=== PATIENT | female | born 1960 | race Two or more races ===

== ENCOUNTER 2020-09-08 08:28 | Inpatient (IN) | payer MEDICAID ==
[2020-09-05 09:18] LABS: HEMATOCRIT 39.3 % (37.0-47.0); HEMOGLOBIN 12.3 G/DL (12.0-16.0); MEAN CORPUSCULAR VOLUME 89 FL (80-99); PLATELET COUNT 267 K/UL (150-450); RED BLOOD COUNT 4.39 M/UL (4.20-5.40); RED CELL DISTRIBUTION WIDTH 16.6 % (11.6-14.8); WHITE BLOOD COUNT 3.4 K/UL (4.8-10.8)
[2020-09-05 09:21] LABS: APPEARANCE,URINE CLEAR; BILIRUBIN, URINE NEGATIVE (NEGATIVE); COLOR,URINE PALE YELLOW; GLUCOSE, URINE (UA) NEGATIVE (NEGATIVE); KETONES,URINE NEGATIVE (NEGATIVE); LEUKOCYTE ESTERASE ,URINE NEGATIVE (NEGATIVE); NITRITE,URINE NEGATIVE (NEGATIVE); PH,URINE 5 (4.5-8.0); PROTEIN,URINE NEGATIVE (NEGATIVE); UROBILINOGEN,URINE NORMAL MG/DL (0.0-1.0)
[2020-09-05 09:24] LABS: ANION GAP 9 mmol/L (5-15); BLOOD UREA NITROGEN 15 mg/dL (7-18); CALCIUM 9.2 MG/DL (8.5-10.1); CARBON DIOXIDE 27 MMOL/L (21-32); CHLORIDE 105 MMOL/L (98-107); CREATININE 0.7 MG/DL (0.55-1.30); POTASSIUM 4.2 MMOL/L (3.5-5.1); SODIUM 141 MMOL/L (136-145)
--- NOTE | 2020-09-05 15:52 | Diagnostic Imaging Report ---
Indication: Cough Technique: 2 views of the chest Comparison: None Findings: Lung bases are clear. There is a right chest port catheter. The heart size is normal. The aorta is tortuous and calcified. Impression: No acute process
--- NOTE | 2020-09-07 10:44 | Pre-op HX & Phy Repo 2 SIG ---
DATE OF ADMISSION: 09/08/2020 SCHEDULED FOR SURGERY: September 08, 2020. HISTORY OF PRESENT ILLNESS: The patient is a 60-year-old female in overall stable health with stage II invasive ductal carcinoma of the left breast. The patient presented in May 2020 with a left breast mass located at 1 o'clock 8 cm from the nipple measuring 3.1 x 2.3 x 2.3 cm as well as 2 cm axillary mass versus enlarged lymph node. Core biopsy of the left breast revealed invasive ductal carcinoma and core biopsy of the left axillary mass revealed metastatic breast carcinoma. Lesion is estrogen and progesterone receptor positive, HER2 negative, Ki-67 15%. The patient underwent a course of neoadjuvant chemotherapy with her last chemotherapy on August 08, 2020. The previously palpable mass resolved but there is persistent thickening in the same area. The patient is scheduled to undergo left breast partial mastectomy and left axillary lymph node dissection. PAST MEDICAL HISTORY: . MEDICATIONS: None. ALLERGIES: None. OPERATIONS: Laminectomy 2009. REVIEW OF SYSTEMS: 2, para 2. Last menstrual period at age 51. PHYSICAL EXAMINATION: VITAL SIGNS: The patient is 5 feet 2 inches, 163 pounds. Blood pressure slightly elevated. HEENT: Within normal limits. LUNGS: Clear. HEART: Regular rhythm. BREASTS: Moderate in size and ptotic. Right breast unremarkable. Left breast has persistent thickening in the upper outer quadrant where there was previously a 3 x 4 cm mass at 1 o'clock 8 cm from the nipple. On clinical exam, there is markedly decreased left axillary lymphadenopathy. ABDOMEN: Soft. PELVIC: Per primary care. RECTAL: Per primary care. EXTREMITIES: Without edema. NEUROLOGIC: Physiologic. IMPRESSION: Stage II invasive ductal carcinoma, left breast, status post neoadjuvant chemotherapy. PLAN: Left breast partial mastectomy and left axillary lymph node dissection. DISCUSSION: I have had a full discussion with the patient regarding the condition, the nature of the surgery, indications, alternatives, options, and risks including bleeding, infection, neuritis or neuralgia, need for additional surgery or treatments including chemotherapy, endocrine therapy, radiation therapy based on final pathology, distortion or scarring of the breast or nipple, etc. All questions have been answered, she understands and agrees to proceed. Rivera Diaz M.D. DR: Bobby JOB#: [id number] CC: BOLIVAR
[~2020-09-08] VITALS: Ht 157.5 cm; Wt 72.6 kg
[2020-09-08] VITALS (13 sets, daily range): BP systolic 104–153; BP diastolic 61–80
[~2020-09-08 08:28] MED LIST: VITAMIN D310 MCG ORAL
[2020-09-08] MEDS ORDERED: Midazolam 2mg/2ml Inj ONE (09:12)
[2020-09-08] MEDS ORDERED: fentaNYL 100 mcg/2 mL IV ONE (09:12)
[2020-09-08] MEDS ORDERED: Lidocaine 1% MPF 10mg/ml 5ml ONE (09:17)
--- NOTE | 2020-09-08 09:26 | Anethesia Preoperative Eval ---
Anesthesia Pre-op PMH/ROS General Date of Evaluation: Sep 08, 2020 Time of Evaluation: 09:23 Anesthesiologist: Yossi ASA Score: ASA 2 Mallampati Score Class I : Soft palate, uvula, fauces, pillars visible Class II: Soft palate, uvula, fauces visible Class III: Soft palate, base of uvula visible Class IV: Only hard plate visible Mallampati Classification: Class II Surgeon: Joe Diagnosis: L breast CA Surgical Procedure: Mastectomy Anesthesia History: none Family History: no anesthesia problems Allergies: Coded Allergies: No Known Allergies (Unverified , 09/05/20) Medications: see eMAR Patient NPO?: Yes Past Medical History Cardiovascular: Denies: HTN, CAD, [place], valve dz, arrhythmia, other Pulmonary: Denies: asthma, COPD, YOLA, other Gastrointestinal/Genitourinary: Reports: GERD; Denies: CRI, ESRD, other Neurologic/Psychiatric: Reports: depression/anxiety; Denies: dementia, CVA, TIA, other Endocrine: Denies: DM, hypothyroidism, steroids, other HEENT: Denies: cataract (L), cataract (R), glaucoma, [place] (L), [place] (R), other Hematology/Immune: Denies: anemia, DVT, bleeding disorder, other Musculoskeletal/Integumentary: Denies: OA, RA, DJD, DDD, edema, other Other: other - overweight PMH Narrative: as above PSxH Narrative: Spine Sx Anesthesia Pre-op Phys. Exam Physician Exam Last Vital Signs Date Time Temp Pulse Resp B/P (MAP) Pulse Ox O2 Delivery O2 Flow Rate FiO2 09/08/20 08:53 Room Air 09/08/20 08:53 96.8 89 18 153/73 98 Constitutional: NAD Neurologic: CN 2-12 intact Cardiovascular: RRR, no M/R/G Respiratory: CTA Gastrointestinal: S/NT/ND Airway Exam Mallampati Score: Class II MO: limited Neck: stiff ROM: limited Teeth: intact Dentures: no upper, no lower Anesthesia Pre-op A/P Labs see chart Risk Assessment & Plan Assessment: ASA 2 Plan: GA with ETT Status Change Before Surgery: No Pre-Antibiotics Drug: Ancef 1gr Given Within 1 Hr of Incision: Yes Time Given: 10:25 Stuart Sy MD Sep 08, 2020 09:26
[2020-09-08 09:30] LABS: HEMATOCRIT 33.2 % (37.0-47.0); HEMOGLOBIN 10.3 G/DL (12.0-16.0); MEAN CORPUSCULAR VOLUME 89 FL (80-99); PLATELET COUNT 213 K/UL (150-450); RED BLOOD COUNT 3.71 M/UL (4.20-5.40); RED CELL DISTRIBUTION WIDTH 15.8 % (11.6-14.8); WHITE BLOOD COUNT 2.2 K/UL (4.8-10.8)
[2020-09-08] MEDS ORDERED: DiphenhydrAMINE 50mg/ml Inj IVP PRN (09:30)
[2020-09-08] MEDS ORDERED: Hydromorphone 0.5mg/0.5ml inj IVP PRN (09:30)
[2020-09-08] MEDS ORDERED: LR 1000ml 1,000 ML IVLG SCH (09:30)
[2020-09-08] MEDS ORDERED: Ketorolac 30mg Inj IV PRN (09:30)
--- NOTE | 2020-09-08 10:14 | Pre-Procedure Note/Attestation ---
Pre-Procedure Note/Attestation Complete Prior to Procedure Planned Procedure: left Procedure Narrative: left breast partial mastectomy and left axillary lymph node dissection Indications for Procedure Pre-Operative Diagnosis: invasive ductal carcinoma left breast Attestation I attest that I discussed the nature of the procedure; its benefits; risks and complications; and alternatives (and the risks and benefits of such alternatives), prior to the procedure, with the patient (or the patient's legal insurance representative). I attest that, if there was a reasonable possibility of needing a blood transfusion, the patient (or the patient's legal insurance representative) was given the [facility] standardized written summary, pursuant to the [place] Blood Safety Act ([place] Health and Safety Code # 1645, as amended). I attest that I re-evaluated the patient just prior to the surgery and that there has been no change in the patient's H&P, except as documented below: none Rivera Diaz MD Sep 08, 2020 10:14
[2020-09-08] MEDS ORDERED: Bacitracin 50000 Units Vial ONE (10:23)
[2020-09-08] MEDS ORDERED: Rocuronium Bromide 50mg/5ml Inj IV ONE (10:34)
[2020-09-08] MEDS ORDERED: Morphine Sulfate 10mg/ml Inj ONE (11:11)
[2020-09-08] MEDS ORDERED: Sodium Chloride 10ml vial INJ ONE (11:11)
[2020-09-08] MEDS ORDERED: Glycopyrrolate 0.2mg/ml 1ml Vial ONE (11:11)
[2020-09-08] MEDS ORDERED: Acetaminophen (Non formulary) 100 ML IV ONE (11:15)
[2020-09-08] MEDS ORDERED: HYDROmorphone 1mg/ml Carpuject SUBQ PRN (12:15)
[2020-09-08] MEDS ORDERED: Metoclopramide 10mg/2ml Inj IVP PRN (12:15)
[2020-09-08] MEDS ORDERED: HYDROcodone/Acetamin 5/325 tab ORAL PRN (12:15)
--- NOTE | 2020-09-08 12:19 | Brief Operative Note ---
Immediate Post Operative Note Operative Note Pre-op Diagnosis: invasive ductal carcinoma left breast Procedure: left breast partial mastectomy and left axillary lymph node dissection Post-op Diagnosis: same Post-op Diagnosis: same as pre-op Findings: consistent w/pre-op dx studies Surgeon: ran Anesthesiologist: abebe Anesthesia: general Specimen: yes - left breast tissue, left axillary lymph nodes Complications: none Condition: stable Fluids: see anesthesia record Estimated Blood Loss: minimal Drains: AKASH Implant(s) used?: No Rivera Diaz MD Sep 08, 2020 12:19
--- NOTE | 2020-09-08 12:24 | Immediate Post-Op Evaluation ---
Immediate Post-Op Evalulation Immediate Post-Op Evalulation Procedure: L breast partial mastectomy with axillary l/n dissection Date of Evaluation: Sep 08, 2020 Time of Evaluation: 12:23 IV Fluids: 800 Blood Products: none Estimated Blood Loss: <50 Urinary Output: none Blood Pressure Systolic: 126 Blood Pressure Diastolic: 68 Pulse Rate: 86 Respiratory Rate: 20 O2 Sat by Pulse Oximetry: 99 Temperature (Fahrenheit): 98.5 Pain Score (1-10): 1 Nausea: No Vomiting: No Complications none Patient Status: reacts, patent, extubated, none Hydration Status: adequate Stuart Sy MD Sep 08, 2020 12:24
--- NOTE | 2020-09-08 14:00 | NUR ---
NURSE NOTES: patient admitted to room 404-2 s/p left partial mastectomy lymph node resection under Dr.Shiller gastelum. A&Ox4, verbally responsive. no respiratory distress on 2L via NC. no c/o pain at this time. Tati cath on right upper chest origanally for CHemo running LR. surgical vest in place. no bleeding noted. AKASH drainage 0 cc at this time. Scd's on. checked and counted belongings with CATHY Cabello,PACU. bed in the lowest position and locked. call light within reach.
--- NOTE | 2020-09-08 14:59 | Operative Note - Dictated ---
DATE OF OPERATION: 09/08/2020 SURGEON: Rivera Diaz MD DISPATCHER TUGBOAT: None. ANESTHESIOLOGIST: Stuart Sy MD TYPE OF ANESTHESIA: General. PREOPERATIVE DIAGNOSIS: Stage II invasive ductal carcinoma, left breast, status post neoadjuvant chemotherapy. POSTOPERATIVE DIAGNOSIS: Stage II invasive ductal carcinoma, left breast, status post neoadjuvant chemotherapy. OPERATION PERFORMED: Left breast partial mastectomy and left axillary lymph node dissection. DESCRIPTION OF PROCEDURE: The patient was taken to the operating room and under general anesthesia with sequential compression device stockings in place, she was prepped and draped in the usual fashion. The lesion was located in the periphery of the upper outer quadrant of the left breast. A curvilinear incision was made achieving hemostasis with cautery and flaps dissected circumferentially. The quadrant of breast tissue was resected down to the pectoralis fascia and chest wall and oriented for the pathologist with sutures placed anterior, superior, and medial. Inspection by Pathology revealed only evidence of fibrosis, status post chemotherapy, and the final margin will be determined on permanent sections. The breast was carefully inspected. There was no residual evidence of fibrotic or abnormal tissue. The field was irrigated with sterile water, followed by antibiotic. Hemostasis carefully achieved with cautery. The incision was closed with interrupted 2-0 Vicryl deep dermal subcutaneous sutures, followed by continuous 4-0 Monocryl subcuticular suture. A vertical left axillary incision was made achieving hemostasis with cautery and incising the clavipectoral fascia. A lower level lymph node dissection was performed using the THUNDERBEAT vessel sealing electrosurgical device as well as a 2-0 Vicryl [id number] suture for hemostasis onto the chest wall. The specimen was given to Pathology confirming the presence of lymph nodes. After dissection, there were no palpable or visible abnormal lymph nodes remaining. Through a separate stab incision inferolaterally, a 10 flat Clay drain was placed into the axilla and sutured to the skin with 2-0 nylon skin suture. The field was irrigated with water and antibiotic solution and hemostasis was secured. The clavipectoral fascia was closed with interrupted 3-0 Vicryl. The subcutaneous tissue was closed with interrupted 3-0 Vicryl and the skin closed with continuous 4-0 Monocryl subcuticular suture. Mastisol and half-inch Steri-Strips were applied to both incisions, followed by dry sterile dressing. The Clay drain placed into the axilla was connected to bulb suction. The patient tolerated the procedure well and left the operating room in good condition. Rivera Diaz M.D. DR: KENDALL JOB#: [id number] CC:
[2020-09-08] MEDS ORDERED: D5 1/2NS w/KCl 20mEq 1,000 ML IV SCH (15:30)
--- NOTE | 2020-09-08 16:45 | 48 Hour Post Anesthesia Eval ---
Post Anesthesia Evaluation Procedure: L breast partial mastectomy with axillary l/n dissection Date of Evaluation: Sep 08, 2020 Time of Evaluation: 16:44 Blood Pressure Systolic: 101 0: 53 Pulse Rate: 70 Respiratory Rate: 14 O2 Sat by Pulse Oximetry: 98 Airway: patent Nausea: No Vomiting: No Hydration Status: adequate Cardiopulmonary Status: stable Mental Status/LOC: patient returned to baseline Follow-up Care/Observations: na Post-Anesthesia Complications: none Follow-up care needed: N/A Doris De Santiago CRNA Sep 08, 2020 16:45
[2020-09-08] MEDS: ceFAZolin 2gm/50ml Premix 50 ML IV SCH (18:16)
--- NOTE | 2020-09-08 19:20 | NUR ---
NURSE HAND-OFF: Important Events on Shift: s/p left partial mastectomy Patient Status: stable6 Diet: regular Pending Orders: n/a Pending Results/Labs:n/a Pending MD notification:n/a Latest Vital Signs: Temperature 98.0 , Pulse 70 , B/P 101 /53 , Respiratory Rate 14 , O2 SAT 98 , Nasal Cannula, O2 Flow Rate 3.0 . Vital Sign Comment: stable Latest Santiago Fall Score: 20 Fall Risk: Low Risk Safety Measures: Call light Within Reach, Bed Alarm Zone 1, Side Rails Side Rails x2, Bed position Low and Locked. Fall Precautions: Yellow Socks Report given to CATHY Sánchez.
--- NOTE | 2020-09-08 20:07 | NUR ---
nurse's notes: received patient awake, alert and oriented; denies any pain. AKASH drain x 1 with scant serosanguineous output. able to ambulate with a steady gait. walked along the hallway without any incident. voiding but very little UOP. will do bladder scan judy. will continue to monitor.
--- NOTE | 2020-09-08 22:10 | NUR ---
nurse's notes: called and left voice mail for dr. tong regarding patient's UOP which is less than 250 ml from the time ms. alcantar came up to the floor; bladder scan done = 286 ml; patient denying any urinary urgency; awaiting callback Addendum: 09/08/20 at 2217 by ROMA WILSON addendum: received callback from dr. tong; order received to do bladder scan again at around [place] and if result is more than 300 ml do straight cath
[2020-09-09] VITALS: BP 124/65
--- NOTE | 2020-09-09 00:16 | NUR ---
nurse'snotes: patient has now voided; PVR via bladder scan=76ml.
[2020-09-09] MEDS: ceFAZolin 2gm/50ml Premix 50 ML IV SCH (02:30)
[2020-09-09 04:00] VITALS: BP 107/66
[2020-09-09 05:17] LABS: BASOPHILS % (AUTO) 1.8 % (0.0-2.0); EOSINOPHILS % (AUTO) 8.1 % (0.0-3.0); HEMATOCRIT 33.9 % (37.0-47.0); HEMOGLOBIN 10.6 G/DL (12.0-16.0); LYMPHOCYTES % (AUTO) 29.6 % (20.0-45.0); MEAN CORPUSCULAR VOLUME 90 FL (80-99); MONOCYTES % (AUTO) 12.6 % (1.0-10.0); PLATELET COUNT 296 K/UL (150-450); RED BLOOD COUNT 3.77 M/UL (4.20-5.40); RED CELL DISTRIBUTION WIDTH 15.9 % (11.6-14.8); WHITE BLOOD COUNT 3.5 K/UL (4.8-10.8)
[2020-09-09 05:24] LABS: ANION GAP 7 mmol/L (5-15); BLOOD UREA NITROGEN 11 mg/dL (7-18); CALCIUM 8.5 MG/DL (8.5-10.1); CARBON DIOXIDE 28 MMOL/L (21-32); CHLORIDE 104 MMOL/L (98-107); CREATININE 0.8 MG/DL (0.55-1.30); SODIUM 139 MMOL/L (136-145)
--- NOTE | 2020-09-09 06:27 | NUR ---
NURSE HAND-OFF: Important Events on Shift: no significant changes noted this shift. Pain managed well with ordered medication with good results. Ambulating well; no falls; voiding well with good UOP. Minimal output from AKASH = 20 ml of serosanguineous fluid. IVF discontinued as ordered. Surgical dressing and brassiere remains CDI. No other complaints received. stable at this time. Eager for breakfast. Patient Status: stable Diet: see chart Pending Orders: see chart Pending Results/Labs: see chart Pending MD notification: see chart Latest Vital Signs: Temperature 98.0 , Pulse 66 , B/P 107 /66 , Respiratory Rate 18 , O2 SAT 96 , Nasal Cannula, O2 Flow Rate 3.0 . Vital Sign Comment: see above Latest Santiago Fall Score: 20 Fall Risk: Low Risk Safety Measures: Call light Within Reach, Bed Alarm Zone 2, Side Rails Side Rails x2, Bed position Low and Locked. Fall Precautions: Yellow Socks Yellow Gown Door Sign Patient Fall Education Report will be given to CATHY Ma.
--- NOTE | 2020-09-09 07:45 | NUR ---
NURSE NOTES: Received report from CATHY Sánchez. Pt awake in bed, alert and oriented. Breathing even and unlabored on RA. No acute distress, denies pain and nausea at this time. According to assistant casino shift manager nurse pt voided over 500cc. Port a cath on R chest intact and patent. Surgical dressing C/D/I, AKASH compressed in place on L breast. SCD on. Bed in low position and locked. Call light within reach. Will continue to monitor.
[2020-09-09 08:00] VITALS: BP 107/64
--- NOTE | 2020-09-09 09:06 | General Progress Note ---
Progress Note Progress Note AVSS Required analgesics overnight but now is comfortable. Left breast and axilla incisions clean with intact steristrips AKASH 20cc overnight serosang WBC: 09/05 3400 09/08 2200 09/09 3500 Imp: Stable Plan: Discharge Rx none Instructions/supplies/limitations discussed/provided f/u office 09/14 Rivera Diaz MD Sep 09, 2020 09:06
--- NOTE | 2020-09-09 10:55 | NUR ---
NURSE NOTES: Pt in stable condition. Provided discharge instruction, follow up date and supplies. Pt verbalized understanding. Flushed port a cath with heplock, removed access needle, and covered with dressing. No bleeding noted. All belongings were accounted for. Pt was escorted by nurse to downstair and picked up by daughter.
[2020-09-09] MEDS ORDERED: Heplock Flush 100 units/ml 3 ml syr INJ SCH (11:00)
--- NOTE | 2020-09-09 15:52 | NUR ---
CASE MANAGEMENT: INITIAL REVIEW 60-year-old female with stage II invasive ductal carcinoma of the left breast SI:BREAST CANCER VS: T 96.8 HR 89 RR 18 B/P 153/73 SATS 98% ON RA LABS: WBC 2.2 IS: NS @ 75 ML/HR CEFAZOLIN IV Q8H DILAUDID SUBQ Q3H PRN PATIENT ADMITTED TO MED/SURG 09/08/2020 @ 1212 DCP: HOME PLAN OF CARE: Left breast partial mastectomy and left axillary lymph node dissection
[2020-09-09] MEDS ORDERED: Dyna-Hex 2% Top Sol 2oz TOPIC SCH (20:00)
--- NOTE | 2020-09-12 15:39 | Discharge Summary ---
Discharge Summary Hospital Course Date of Admission Sep 08, 2020 at 14:24 Date of Discharge Sep 09, 2020 at 11:30 Admitting Diagnosis Stage II invasive ductal carcinoma, left breast, status post neoadjuvant chemotherapy. Reason for Hospitalization: Elective surgery HPI Gabriella Corona is a 60 year old female who was admitted on Sep 08, 2020 at 14:24 for Left Breast Stage II invasive ductal carcinoma, status post neoadjuvant chemotherapy. Patient admitted for elective surgery. Procedures s/p 09/08/[address] Diaz Left breast partial mastectomy and left axillary lymph node dissection. Hospital Course status post surgery course of recovery uneventful initially IV fluids s/p perioperative antibiotics Left breast and axilla incision clean with intact Steri-Strips AKASH output was closely monitored patient was instructed on how to care of AKASH drain at home pain management was addressed , and pain was controlled remained hemodynamically stable tolerated diet , IV fluids discontinued patient was stable for discharge instructions/supplies/limitation discussed/provided patient to follow-up in the office on 09/14 FINAL DIAGNOSES Stage II invasive ductal carcinoma, left breast, status post neoadjuvant chemotherapy. s/p Left breast partial mastectomy and left axillary lymph node dissection. Discharge Medications Continued Medications: Vitamin D (Vitamin D3) 10 Mcg Tablet 400 MCG ORAL DAILY for SUPPLEMENT , TAB Discharge Condition Upon Discharge: stable Discharge Vital Signs Last Vital Signs Date Time Temp Pulse Resp B/P (MAP) Pulse Ox O2 Delivery O2 Flow Rate FiO2 09/09/20 09:00 Room Air 09/09/20 08:00 97.6 78 18 107/64 (78) 95 09/08/20 14:57 3.0 Discharge Disposition Patient was discharged home Discharge Instructions Discharge Instructions Special Instructions I was assigned to dictate discharge summary on this account. I was not involved in patient management. Dariana Hamlin NP Sep 12, 2020 15:39
== END 2020-09-09 11:30 | disposition home or self-care (01) | DRG 363 ==
LOC: SUR 08:28 → 4E 14:24
PROC: 07T60ZZ Resection of Left Axillary Lymphatic, Open Approach (ICD-10-PCS; 2020-09-08)
PROC: 0HBU0ZZ Excision of Left Breast, Open Approach (ICD-10-PCS; principal; 2020-09-08 11:00)
DX: C50.412 Malignant neoplasm of upper-outer quadrant of left female breast (principal); Z17.0 Estrogen receptor positive status [ER+]; Z79.899 Other long term (current) drug therapy
CPT/HCPCS: 36415; 71046; 80048; 81001; 85007; 85025; 85610; 85730; 93005; 94003; 94150; J2250